=== PATIENT | female | born 1990 | race Caucasian/White ===

== ENCOUNTER 2019-06-04 20:19 | Emergency (ER) | payer MEDICAID ==
[~2019-06-04] VITALS: Ht 160 cm; Wt 51.7 kg
--- NOTE | 2019-06-04 20:40 | NUR ---
PT BIBSELF C/O VAGINAL BLEEDING X2 WEEKS. PT STATES SHE HAD X2 WEEKS WELL. BLEEDING DESCRIBED SMALL AMOUNT, BRIGHT RED. PT AAOX4. RESPIRATIONS EVEN AND UNLABORED. SKIN INTACT. VITAL SIGNS STABLE. ABLE TO AMBULATE WITH STEADY GAIT. WILL CONTINUE TO MONITOR
--- NOTE | 2019-06-04 20:58 | NUR ---
AT BEDSIDE WITH DR. ELENA TO [employer] FOR PELVIC EXAM
--- NOTE | 2019-06-04 21:02 | NUR ---
URINE COLLECTED AND SENT TO LAB
--- NOTE | 2019-06-04 21:22 | NUR ---
US AT BEDSIDE
--- NOTE | 2019-06-04 21:23 | NUR ---
CIRCUS HAND AT BEDSIDE FOR BLOOD DRAW
[2019-06-04] MEDS ORDERED: IV NS 0.9% 1,000 ML BAG IV ONE (21:30)
[2019-06-04 21:35] LABS: BASOPHILS # (AUTO) 0.1 /CMM (0.0-0.2); BASOPHILS % (AUTO) 0.6 % (0.0-2.0); EOSINOPHILS % (AUTO) 1.5 % (0.0-6.0); HEMATOCRIT 37 % (33-45); HEMOGLOBIN 12.6 g/dL (11.5-14.8); LYMPHOCYTES # (AUTO) 2.9 /CMM (0.8-4.8); MEAN CORPUSCULAR HGB CONC 34 g/dl (31.0-36.0); MEAN CORPUSCULAR VOLUME 94 fL (82-100); MONOCYTES # (AUTO) 0.7 /CMM (0.1-1.30); MONOCYTES % (AUTO) 4.7 % (2.0-12.0); NEUTROPHILS # (AUTO) 11.5 /CMM (1.8-8.9); NEUTROPHILS % (AUTO) 74.2 % (43.0-81.0); PLATELET COUNT (AUTO) 318 /CMM (150-450); RED BLOOD CELL COUNT(AUTO) 3.92 MIL/uL (4.0-5.2); WHITE BLOOD COUNT (AUTO) 15.5 K/uL (4.3-11.0)
[2019-06-04 21:43] LABS: CALCIUM, SERUM 8.5 mg/dL (8.5-10.1); CREATININE 0.7 mg/dL (0.6-1.3); POTASSIUM 4.1 mmol/L (3.5-5.1)
--- NOTE | 2019-06-04 22:38 | NUR ---
Patient discharged to home in stable condition. Written and verbal after care instructions given. Patient verbalizes understanding of instruction.IV removed. Catheter intact and site benign. Pressure and 4x4 applied to site. No bleeding noted.Pt ambulatory with a steady gait
[2019-06-04 22:39] VITALS: BP 126/89
== END 2019-06-04 22:39 | disposition home or self-care (01) ==
LOC: ER 20:32
DX: O03.4 Incomplete spontaneous abortion without complication (principal); Z98.890 Other specified postprocedural states; Z60.2 Problems related to living alone; Z3A.13 13 weeks gestation of pregnancy
CPT/HCPCS: 36415; 76856; 80048; 84702; 85025; 85730; 86850; 87081; 99284; J7030

== ENCOUNTER 2021-03-15 16:53 | Emergency (ER) | payer MEDICAID, OTHER ==
[~2021-03-15] VITALS: Ht 160 cm; Wt 59.0 kg
[2021-03-15 17:10] VITALS: BP 127/82
[2021-03-15] MEDS ORDERED: LORAZEPAM INJ 2 MG/ML VIAL IV ONE (17:30)
[2021-03-15] MEDS ORDERED: IV NS 0.9% 1,000 ML BAG IV ONE (17:30)
[2021-03-15] MEDS ORDERED: LORAZEPAM INJ 2 MG/ML VIAL ONE (17:35)
== END 2021-03-15 19:07 | disposition left against medical advice (07) ==
LOC: ER 16:53
DX: R51.9 Headache, unspecified (principal); R00.0 Tachycardia, unspecified; Z20.822 Contact with and (suspected) exposure to COVID-19; J02.9 Acute pharyngitis, unspecified; R52 Pain, unspecified
CPT/HCPCS: 71045; 87070; 87426; 87804; 87880; 99284; C9803; 86403-TC; J2060; J7030

== ENCOUNTER 2022-10-31 22:09 | Emergency (ER) | payer OTHER ==
[~2022-10-31] VITALS: Ht 160 cm; Wt 77.1 kg
[2022-10-31 22:46] VITALS: BP 145/98
--- NOTE | 2022-10-31 22:46 | NUR ---
BIBS C/O FOREIGNBODY IN RIGHT EAR. PT A/OX 4. TOLERATING R/A WELL WITH NO RESP DISTRESS, SAFETY MEASURES IN PLACE.
== END 2022-10-31 23:22 | disposition home or self-care (01) ==
LOC: ER 22:12
DX: H92.01 Otalgia, right ear (principal); Z71.1 Person with feared health complaint in whom no diagnosis is made; F12.90 Cannabis use, unspecified, uncomplicated; Z98.890 Other specified postprocedural states; Z60.2 Problems related to living alone
CPT/HCPCS: 99281; A6403